=== PATIENT | female | born 1945 | race Caucasian/White ===

== ENCOUNTER 2018-08-04 09:44 | Day surgery (SDC) | payer OTHER ==
[~2018-08-04] VITALS: Ht 144.8 cm; Wt 82.7 kg
[2018-08-04] MEDS ORDERED: ATENOLOL PO (10:25)
[2018-08-04] MEDS ORDERED: SIMVASTATIN PO (10:25)
[2018-08-04] MEDS ORDERED: DIABETES PILL (10:25)
[2018-08-04] MEDS ORDERED: IRON (10:25)
[2018-08-04 10:30] VITALS: Ht 144.8 cm; Wt 82.7 kg
[2018-08-04] MEDS ORDERED: ASPI-817 PO (10:33)
--- NOTE | 2018-08-04 10:35 | PREAC ---
Date/Time of Note Date/Time of Note DATE: 08/04/18 TIME: 10:33 Anesthesia Eval and Record Evaluation Time Pre-Procedure Interview DATE: 08/04/18 TIME: 10:33 Age 73 Sex female NPO: 8 hrs Preoperative diagnosis RECTAL BLEED, ANEMIA Planned procedure COLONOSCOPY Past Medical History Past Medical History: Includes Cardio: HTN Endo: Diabetes GI: Obesity Heme: Anemia Surgery & Anesthesia Issues No known issue Meds Anticoagulation: No Beta Tabatha within 24 hr: No Reason Beta Tabatha not given: Pt. not on B-Tabatha Reported Medications [Iron] No Conflict Check 08/04/18 [Simvastatin] No Conflict Check, PO 08/04/18 [Diabetes Pill] No Conflict Check 08/04/18 [Diabetes Pill] No Conflict Check 08/04/18 [Atenolol] No Conflict Check, PO 08/04/18 Meds reviewed: Yes Allergies Coded Allergies: No Known Allergy (Unverified , 08/04/18) Allergies Reviewed: Yes Labs/Studies Labs Reviewed: Reviewed by anesthesiologist test: N/A Studies: ECG, CXR Pre-procedure Exam Airway: Adequate mouth opening, Adequate thyromental dist Mallampati: Mallampati II Teeth: Normal Lung: Normal Heart: Normal ASA Physical Status ASA physical status: 2 Emergency: None Planned Anesthetic General/MAC: MAC Planned Pain Management Parenteral pain med Pre-operative Attestations Prior to commencing anesthesia and surgery, the patient was re-evaluated, there was verification of: *The patient's identity *The results of appropriate recent lab work and preoperative vital signs *The above evaluation not changing prior to induction *Anesthetic plan, risk benefits, alternative and complications discussed with patient/family; questions answered; patient/family understands, accepts and wishes to proceed. DALLIN ORTEGA Aug 04, 2018 10:35
[2018-08-04] MEDS ORDERED: PROPOFOL 40 ML ONE (10:38)
[2018-08-04] MEDS ORDERED: LIDOCAINE 2% (SDV) 5 ML INJ ONE (10:38)
[2018-08-04 10:45] VITALS: BP 193/89; PULSE 60; RESP 14
[2018-08-04] MEDS ORDERED: ONDANSETRON 4 MG INJ IV PRN (11:00)
[2018-08-04] MEDS ORDERED: EPHEDrine SULFATE 50 MG/5 ML SYG IV PRN (11:00)
[2018-08-04] MEDS ORDERED: hydrALAzine 20 MG INJ IV PRN (11:00)
[2018-08-04] MEDS ORDERED: FENTAnyl 50 MCG/ML VIAL IV PRN ×2 (11:00)
[2018-08-04] MEDS ORDERED: LABETALOL HCL 20MG INJ IV PRN (11:00)
--- NOTE | 2018-08-04 11:14 | PAC ---
Date/Time of Note Date/Time of Note DATE: 08/04/18 TIME: 11:13 Post-Anesthesia Notes Post-Anesthesia Note Last documented vital signs TEMP 98.3 BP 125/67. P 67. O2 SAT 99% at 1114 Activity: WNL Respiratory function: WNL Cardiovascular function: WNL Mental status: Baseline Pain reasonably controlled: Yes Hydration appropriate: Yes Nausea/Vomiting absent: Yes DALLIN ORTEGA Aug 04, 2018 11:14
[2018-08-04 11:30] VITALS: BP 151/65; PULSE 53; RESP 15
== END 2018-08-04 13:20 | disposition home or self-care (01) ==
LOC: GIL 09:44
PROVIDERS: ATTEND Internal Medicine Gastroenterology
DX: K64.8 Other hemorrhoids (principal); K57.30 Diverticulosis of large intestine without perforation or abscess without bleeding; D50.9 Iron deficiency anemia, unspecified